=== PATIENT | female | born 1955 | race Asian ===

== ENCOUNTER 2018-04-04 11:01 | Emergency (ER) | payer BC ==
[~2018-04-04] VITALS: Ht 398.8 cm; Wt 65.0 kg
[2018-04-04 11:39] LABS: HEMATOCRIT 35.6 % (36.0-46.0); MCHC 33.7 G/DL (30.0-36.0); PLATELET COUNT 186 K/uL (156-360); RBC DIS.WIDTH-CV 12.3 % (11.8-14.6); RBC DIS.WIDTH-SD 40.3 % (39-53); WHITE BLOOD COUNT 11.6 K/uL (4.1-10.2)
[2018-04-04 11:47] LABS: CHLORIDE 103 mEq/L (99-109); POTASSIUM 3.1 mEq/L (3.7-5.4); SODIUM 137 mEq/L (136-147)
[2018-04-04 11:49] LABS: GLUCOSE 171 mg/dL (70-99)
[2018-04-04 11:53] LABS: CREATININE 0.8 mg/dL (0.6-1.3); GFR ESTIMATE (CALCULATED) > 59 mL/min/
[2018-04-04 11:54] LABS: UREA NITROGEN (BUN) 12 mg/dL (9-23)
[2018-04-04 11:59] LABS: TROP-I INTERPRETATION NEGATIVE; TROPONIN-I < 0.01 ng/mL (0.0-0.30)
[2018-04-04 12:26] LABS: ALBUMIN 4.1 g/dL (3.2-4.8)
[2018-04-04 12:28] LABS: TOTAL PROTEIN 7.2 g/dL (6.4-8.3)
[2018-04-04 12:30] LABS: TOTAL BILIRUBIN 0.5 mg/dL (0.0-1.0)
[2018-04-04 12:31] LABS: ALKALINE PHOSPHATASE 76 IU/L (3-129)
[2018-04-04 12:34] LABS: ALT (GPT) 23 IU/L (3-49); AST (GOT) 21 IU/L (2-34); DIRECT BILIRUBIN 0.2 mg/dL (0.0-0.3)
[2018-04-04 12:54] LABS: APPEARANCE CLEAR ((CLEAR)); BILIRUBIN NEGATIVE; BLOOD SMALL; COLOR COLORLESS ((YELLOW)); GLUCOSE (STRIP) NEGATIVE; KETONES NEGATIVE; LEUKOCYTES NEGATIVE; NITRITE NEGATIVE; PROTEIN (STRIP) NEGATIVE; SPECIFIC GRAVITY 1.003 (1.000-1.030); UROBILINOGEN 0.2 MG/DL (0.2-1.0)
[2018-04-04 12:59] LABS: BACTERIA NONE SEEN /HPF; EPITHELIAL CELLS NONE SEEN /HPF; MUCUS NONE SEEN /LPF; RED BLOOD CELLS 0-5 /HPF (0-5); UCUL ADDED? NO; WHITE BLOOD CELLS 0-5 /HPF (0-5)
[2018-04-04 14:47] VITALS: BP 126/69
== END 2018-04-04 14:55 | disposition home or self-care (01) ==
LOC: EME 11:01
PROVIDERS: Emergency Medicine
DX: R50.9 Fever, unspecified (principal); M79.1 Myalgia; R53.81 Other malaise; R51 Headache; R05 Cough
CPT/HCPCS: 70450; 71046; 80048; 80076; 81003; 83605; 84484; 85027; 87040; 93005; 99281; 99285; J7030